=== PATIENT | male | born 1940 | race Caucasian/White ===

== ENCOUNTER 2024-01-01 12:49 | Emergency (ER) | payer MEDICARE, OTHER, SELFPAY ==
[2024-01-01 12:50] VITALS: BP 149/70
[2024-01-01 13:14] LABS: % Basophils 0.4 % (0-2); % Eosinophils 2.4 % (0-6); % Immature Granulocytes 0.4 % (0-0.5); % Lymphocytes 19.7 % (20.5-51.1); % Monocytes 9.6 % (1.7-9.3); % Neutrophils 67.5 % (42.2-75.2); Absolute Eosinophils 0.1 10^3/uL (0-0.7); Absolute Lymphocytes 1.1 10^3/uL (1.2-3.4); Absolute Monocytes 0.5 10^3/uL (0.1-0.6); Absolute Neutrophils 3.6 10^3/uL (1.4-6.5); Hematocrit 39.2 % (39.0-52.0); Hemoglobin 14.1 g/dL (13.0-18.0); Mean Corpuscular Hgb 31.9 pg (27.0-31.0); Mean Corpuscular Volume 88.7 fL (80.0-94.0); Nucleated Red Blood Cells % 0 % (-); Platelet Count 203 10^3/uL (130-400); Red Blood Cell Count 4.42 10^6/uL (4.70-6.10); Red Cell Dist. Width 12.8 % (11.5-14.5); White Blood Cell Count 5.3 10^3/uL (4.8-10.8)
[2024-01-01 13:37] LABS: ALT (SGPT) 19 U/L (0-50); AST (SGOT) 25 U/L (17-59); Albumin 4.5 g/dl (3.5-5.0); Alkaline Phosphatase 54 U/L (38-126); Blood Urea Nitrogen 21 mg/dl (9-20); Calcium 9.5 mg/dl (8.4-10.2); Carbon Dioxide 25 mmol/L (22-30); Chloride 105 mmol/L (98-107); Glucose 101 mg/dl (70-99); Potassium 4.1 mmol/L (3.5-5.1); Sodium 136 mmol/L (135-145); Total Bilirubin 0.7 mg/dl (0.2-1.3); Total Protein 6.6 g/dl (6.3-8.2); eGFR > 60.00
[2024-01-01 13:39] LABS: Troponin I < 0.012 ng/ml
--- NOTE | 2024-01-01 14:00 | ED.GENMED ---
History of Present Illness
General
Chief Complaint: Chest Pain
Time Seen by Provider: 01/01/24 14:00
Travel History
Have you had any contact with someone who has COVID-19?: No
Do you have any symptoms of coronavirus? Fever > 100 degrees, chills, cough, shortness of breath, sore throat, loss of taste or smell, muscle aches, or headache?: No
History of Present Illness
History of Present Illness:
HPI: Patient presents with chest pain that started last night. It became a little bit more constant around 10 AM today. The pain is localized to a small portion of the inferior left breast region. It does not radiate. He has no exertional
symptoms. He never broke onto a sweat. He has no shortness of breath. He is currently on Plavix without aspirin.
EXAM:
GENERAL: Well appearing in no distress
HEENT: Moist oral mucosa
CARDIOVASCULAR: 4 out of 6 systolic murmur heard in the upper sternal borders, normal heart rate and rhythm, No chest wall tenderness
PULMONARY: No respiratory distress, breath sounds are clear and equal
ABDOMEN: Soft with no peritoneal signs, no tenderness
NEUROLOGIC: Excellent strength all extremities, no coordination deficits
PSYCHIATRIC: Appropriate mental status, normal insight and judgement
EXTREMITIES: Nontender, no edema, moves all extremities equally
SKIN: No rash, no lesions
ED COURSE:
2:30 PM: I initially evaluated
NUMBER AND COMPLEXITY OF PROBLEMS ADDRESSED AT THE ENCOUNTER
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
� Acute Exacerbation and/or Progression of Chronic Illness: This is an acute problem
� Differential Diagnosis includes: Musculoskeletal chest wall pain, ACS much less likely, shingles unlikely, no ongoing symptoms therefore doubt pneumothorax or PE
AMOUNT AND/OR COMPLEXITY OF DATA TO BE REVIEWED AND ANALYZED
� I performed an independent evaluation of and my interpretation is:
EKG: Sinus 61, normal axis, no acute ST abnormality
CT:
X-rays:
Laboratory Studies: CBC, chemistries, troponin negative
Other:
� Review of other/old records: The patient had an elevated troponin that peaked at 0.208 in February 2021; the patient was admitted in February 2021 with a stroke and did have an elevated troponin at that time. He was discharged with
recommendation of DAPT and then indefinite after aspirin and signed out AMA at that time
� Clinical information was obtained by an independent historian: I spoke to the at bedside
� Prescriptions/Medications Considered but not given:
� Further testing considered but not performed: Considered x-ray however the patient has no ongoing symptoms
RISK OF COMPLICATIONS AND/OR MORBIDITY OR MORTALITY OF PATIENT MANAGEMENT
� Social determinants of health affecting care: Lives at home
� Discussion with other providers:
� Escalation of care including admission/observation vs risk of discharge considered: Unremarkable ED work and had a normal EKG and troponin today. He does have a murmur on exam and review of old records show that he did have
aortic stenosis. Encourage close outpatient follow-up as the patient has no ongoing symptoms currently.
Past History
Past History
ED Past Medical History: HTN and NIDDM
ED Past Surgical History: Appendectomy and Other (Hernia repair)
Social History
Tobacco: Non-smoker
Alcohol: None
Drug: None
Personal: Single
Living: with family
Employment: Employed
Family History
Family History: Diabetes; Negative Early CAD or CAD
Phy Exam
Physical Exam
Physical Exam:
See HPI
Scores
Heart Score for Chest Pain Patients
STEMI patient?: Not applicable
Course
Orders/Labs/Results
Orders:
Orders
01/01/24 12:52
Electrocardiogram (*1) Urgent
Reason for Study: Chest Pain
EKG- Treatment ONCE
01/01/24 12:58
Complete Blood Count/With Diff Urgent
Comprehensive Metabolic Panel Urgent
Troponin I Urgent
Abnormal Lab Results
01/01/24
12:58
RBC 4.42 L 10^6/uL
(4.70-6.10)
MCH 31.9 H pg
(27.0-31.0)
Absolute Lymphs (auto) 1.1 L 10^3/uL
(1.2-3.4)
Lymphocytes % 19.7 L %
(20.5-51.1)
Monocytes % 9.6 H %
(1.7-9.3)
BUN 21 H mg/dl
(9-20)
Glucose 101 H mg/dl
(70-99)
01/01/24 12:58
01/01/24 12:58
Vital Signs
Initial and Last Documented VS:
Initial Vital Signs
Temp Pulse Resp BP Pulse Ox
97.5 F 67 14 149/70 99
01/01/24 12:50 01/01/24 12:50 01/01/24 12:50 01/01/24 12:50 01/01/24 12:50
Last Documented Vital Signs
Temp Pulse Resp BP Pulse Ox
97.5 F 67 18 143/71 97
01/01/24 12:50 01/01/24 14:37 01/01/24 14:37 01/01/24 14:37 01/01/24 14:37
*Critical Care Note
Total Time (30-74mins, 75-104mins- exclusive of procedures): Not Applicable
ED Attending Note
-
Portions of this chart may have been created with voice recognition software.� Occasional wrong word or��sound alike� substitutions may have occurred due to the inherent limitations of voice recognition software.
Discharge Plan
Departure
Patient Disposition: Home (Routine Discharge)
Date of Disposition: 01/01/24
Time of Disposition: 14:34
Patient with high blood pressure during this ER visit?: Yes
Discharge Problem:
Chest pain
Instructions: Chest Pain DCA Follow Up
Prescriptions:
No Action
metformin 500 MG tablet
1,000 mg PO BID
coenzyme [id number] 1 CAP capsule
200 mg PO DAILY
cholecalciferol (vitamin D3) 1,000 UNITS tablet
1,000 units PO QPM
cod liver oil 1 CAP capsule
1 cap PO QPM
ascorbic acid (vitamin C) [Vitamin C] 500 MG tablet
500 mg PO DAILY
losartan 25 MG tablet
25 mg PO QPM
cinnamon bark [Cinnamon] 500 MG capsule
2,000 mg PO QPM
glucos sul [id number] [Glucosamine Chondroitin] 1 EACH capsule
1 ea PO BID
Referrals:
Cullen Iqbal MD [Active] - Follow up in 2-3 days
Merlin Hughes MD [Family Provider] -
Activity Restrictions/Additional Instructions:
The cause of your chest pain is unclear. It could be coming from the chest wall. Fortunately you do not have any further chest pain. Cardiac blood work shows no sign of heart attack. EKG is unremarkable. Dr. Iqbal's group read an echo that
you had back in 2020 and at that time a moderate amount of aortic stenosis was noted. Please follow-up with cardiology and somebody from Dr. Iqbal's office should be calling you for follow-up.
Interventions
Interventions:
*Risk Screen - Suicide Last Done: 01/01/24 14:35
*General Assessment Last Done: 01/01/24 12:50
*Neglect/Abuse Screening Last Done: 01/01/24 14:35
ED- Fall Risk Assessment Last Done: 01/01/24 14:35
*ED COVID-19 Vaccine History Last Done: 01/01/24 14:35
ED- Cardiac Assessment Last Done: 01/01/24 14:35
[2024-01-01 14:34] VITALS: BMI 21.7
[2024-01-01 14:37] VITALS: BP 143/71
== END 2024-01-01 14:55 | disposition home or self-care (01) ==
LOC: EMR 12:49
PROVIDERS: Physician Assistant; EMERGENCY PHYSICIAN Emergency Medicine; FAMILY PHYSICIAN Internal Medicine
DX: R07.89 Other chest pain (principal); I10 Essential (primary) hypertension; E11.9 Type 2 diabetes mellitus without complications; I35.0 Nonrheumatic aortic (valve) stenosis; Z79.02 Long term (current) use of antithrombotics/antiplatelets; Z83.3 Family history of diabetes mellitus; Z86.73 Personal history of transient ischemic attack (TIA), and cerebral infarction without residual deficits; Z90.49 Acquired absence of other specified parts of digestive tract
CPT/HCPCS: 99283; 80053; 84484; 85025; 93005

== ENCOUNTER → 2024-02-26 17:15 | Outpatient (REF) | payer MEDICARE, OTHER, SELFPAY | LOC: RCS 17:15 | PROVIDERS: ATTENDING PHYSICIAN Internal Medicine Cardiovascular Disease; FAMILY PHYSICIAN Internal Medicine | DX: I35.0 Nonrheumatic aortic (valve) stenosis (principal) | CPT/HCPCS: 93306 ==

== ENCOUNTER → 2024-04-16 06:36 | Outpatient (REF) | payer MEDICARE, OTHER, SELFPAY ==
[2024-04-16 07:56] LABS: ALT (SGPT) 15 U/L (0-50); AST (SGOT) 22 U/L (17-59); Albumin 4.3 g/dl (3.5-5.0); Alkaline Phosphatase 70 U/L (38-126); Blood Urea Nitrogen 15 mg/dl (9-20); Calcium 9.6 mg/dl (8.4-10.2); Carbon Dioxide 25 mmol/L (22-30); Chloride 104 mmol/L (98-107); Glucose 122 mg/dl (70-99); Potassium 4.4 mmol/L (3.5-5.1); Sodium 139 mmol/L (135-145); Total Bilirubin 0.5 mg/dl (0.2-1.3); Total Protein 6.6 g/dl (6.3-8.2); eGFR > 60.00
[2024-04-16 09:36] LABS: Glycohemoglobin (HgbA1c) 6.8 % (4.0-5.6)
== END ==
LOC: REG 06:36
PROVIDERS: ATTENDING PHYSICIAN Internal Medicine Endocrinology, Diabetes & Metabolism
DX: E11.21 Type 2 diabetes mellitus with diabetic nephropathy (principal)
CPT/HCPCS: 36415; 80053; 83036

== ENCOUNTER 2024-08-02 09:22 | Emergency (ER) | payer MEDICARE, OTHER, SELFPAY ==
[2024-08-02 09:26] VITALS: BP 149/90
--- NOTE | 2024-08-02 09:53 | EDRN ---
Dr. Mclean in room w/pt.
[2024-08-02 10:06] VITALS: BMI 21.8
--- NOTE | 2024-08-02 10:15 | ED.GENMED ---
History of Present Illness
General
Chief Complaint: Extremity Pain (non-traumatic)
Time Seen by Provider: 08/02/24 09:44
History of Present Illness
History of Present Illness:
83-year-old male without significant past medical history presenting with left upper extremity pain. Patient notes pain for the past 3 days, however worsened last evening. Denies any known inciting injury, however does report that he chops a lot
of wood and may have irritated his arm from that movement. Denies associated chest pain or difficulty breathing. He took 2 Aleve and Tylenol prior to arrival and reports that pain has improved. Denies numbness or tingling to his extremity.
Denies fever or systemic symptoms. Denies additional acute medical complaints
Past History
Past History
ED Past Medical History: HTN and NIDDM
ED Past Surgical History: Appendectomy and Other (Hernia repair)
Social History
Tobacco: Non-smoker
Alcohol: None
Drug: None
Personal: Single
Living: with family
Employment: Employed
Family History
Family History: Diabetes; Negative Early CAD or CAD
Phy Exam
Physical Exam
Physical Exam:
General: Well-appearing, no clinical signs of dehydration, nontoxic and in no acute distress
HEENT: protecting airway
Neck: appears supple
CV: Normal heart rate, regular rhythm, no evidence of cyanosis
Resp: No accessory muscle use, no increased work of breathing, lungs clear to auscultation bilaterally
Abd: No distention
Extremities: No deformities, no swelling, no erythema, no focal reproducible tenderness. Distal sensation and pulses intact to the left upper extremity. Range of motion intact to the left upper extremity
Neuro: alert, no focal neurologic deficit
: deferred
Rectal: deferred
Psych: Normal affect
Skin: Intact
Course
Orders/Labs/Results
Orders:
Orders
08/02/24 09:30
Electrocardiogram (*1) Urgent
Reason for Study: Hypertension, Benign
08/02/24 09:31
EKG- Treatment ONCE
08/02/24 10:16
Complete Blood Count/With Diff Urgent
Comprehensive Metabolic Panel Urgent
Troponin I Urgent
Abnormal Lab Results
08/02/24
10:16
WBC 4.4 L 10^3/uL
(4.8-10.8)
RBC 4.02 L 10^6/uL
(4.70-6.10)
Hgb 11.9 L g/dL
(13.0-18.0)
Hct 35.2 L %
(39.0-52.0)
Absolute Lymphs (auto) 0.8 L 10^3/uL
(1.2-3.4)
Lymphocytes % 18.9 L %
(20.5-51.1)
Monocytes % 10.0 H %
(1.7-9.3)
BUN 23 H mg/dl
(9-20)
Glucose 197 H mg/dl
(70-99)
Total Protein 6.1 L g/dl
(6.3-8.2)
08/02/24 10:16
08/02/24 10:16
Vital Signs
Initial and Last Documented VS:
Initial Vital Signs
Temp Pulse Resp BP Pulse Ox
98.1 F 72 16 149/90 98
08/02/24 09:26 08/02/24 09:26 08/02/24 09:26 08/02/24 09:26 08/02/24 09:26
Last Documented Vital Signs
Temp Pulse Resp BP Pulse Ox
98.1 F 64 14 152/67 99
08/02/24 09:26 08/02/24 11:30 08/02/24 11:30 08/02/24 11:00 08/02/24 11:30
MDM/Problems Addressed
MDM/Problems Addressed:
83-year-old male with history of diabetes presenting with left upper extremity pain for 3 days. Vital signs are within normal limits.
On exam, patient is well-appearing, no acute distress or discomfort. Overall benign examination of the left upper extremity, no swelling, no deformity, no redness. Range of motion is intact without any neurovascular compromise. No infectious
findings. Notes that he took Aleve and Tylenol prior to arrival which has significantly improved his pain. Ultimately suspect musculoskeletal quality to pain. Reports that he chops a lot of wood, which is likely strained the muscles in his
forearm. Screening EKG performed, nonischemic with lower suspicion for ACS equivalent. Will screen with laboratory analysis given age and comorbidities, however again low suspicion. Will obtain x-rays no occult fracture.
10:20 - Patient is declining x-ray imaging at this time, feel reasonable
11:35 - Labs unremarkable. On reassessment patient remains hemodynamically stable. At this time feel that he is stable for discharge. Advised continued supportive therapy. Return precautions discussed and patient verbalized understanding
*EKG
Interpreted by ED Provider?: Yes
EKG Intrepretation Date: 08/02/24
EKG Intrepretation Time: 10:19
Interpretation: normal
Comparison EKG: no changes (01/01/24)
Heart Rate: 65
Rate: normal
Rhythm: sinus
Lynn: normal axis
Interval: normal interval
QRS Pattern: normal QRS
Ischemia: no ischemia
*Critical Care Note
Total Time (30-74mins, 75-104mins- exclusive of procedures): Not Applicable
ED Attending Note
-
Portions of this chart may have been created with voice recognition software.� Occasional wrong word or��sound alike� substitutions may have occurred due to the inherent limitations of voice recognition software.
Discharge Plan
Departure
Prescriptions:
No Action
metformin 500 MG tablet
1,000 mg PO BID
coenzyme [id number] E 1 CAP capsule
200 mg PO DAILY
cholecalciferol (vitamin D3) 1,000 UNITS tablet
1,000 units PO QPM
cod liver oil 1 CAP capsule
1 cap PO QPM
ascorbic acid (vitamin C) [Vitamin C] 500 MG tablet
500 mg PO DAILY
losartan 25 MG tablet
25 mg PO QPM
cinnamon bark [Cinnamon] 500 MG capsule
2,000 mg PO QPM
glucos sul [id number] [Glucosamine Chondroitin] 1 EACH capsule
1 ea PO BID
Referrals:
Daniella Suresh MD [Family Provider] -
Interventions
Interventions:
*Risk Screen - Suicide Last Done: 08/02/24 10:07
*General Assessment Last Done: 08/02/24 10:11
*Neglect/Abuse Screening Last Done: 08/02/24 10:07
ED- Fall Risk Assessment Last Done: 08/02/24 10:11
*ED COVID-19 Vaccine History Last Done: 08/02/24 10:07
ED-Skin Assessment Last Done: 08/02/24 10:23
ED-Peripheral Vascular Assessment Last Done: 08/02/24 10:23
ED-Musculoskeletal Assessment Last Done: 08/02/24 10:23
Discharge Date and Time
Print Language: TURKMEN
[2024-08-02 10:19] VITALS: BP 148/75
--- NOTE | 2024-08-02 10:21 | EDRN ---
Pt when laureen came to room to take him to xray for lower arm and elbow where his pain is declined having an xray done. Pt said to this RN he has no injury so an xray will not show anything. He also said 'I would know if it was broken.'
[2024-08-02 10:36] LABS: % Basophils 0.5 % (0-2); % Eosinophils 2.7 % (0-6); % Immature Granulocytes 0.5 % (0-0.5); % Lymphocytes 18.9 % (20.5-51.1); % Neutrophils 67.4 % (42.2-75.2); Absolute Eosinophils 0.1 10^3/uL (0-0.7); Absolute Lymphocytes 0.8 10^3/uL (1.2-3.4); Absolute Monocytes 0.4 10^3/uL (0.1-0.6); Hematocrit 35.2 % (39.0-52.0); Hemoglobin 11.9 g/dL (13.0-18.0); Mean Corp Hgb Conc. 33.8 g/dL (33.0-37.0); Mean Corpuscular Hgb 29.6 pg (27.0-31.0); Mean Corpuscular Volume 87.6 fL (80.0-94.0); Mean Platelet Volume 9.3 fL (7.4-10.4); Nucleated Red Blood Cells % 0 % (-); Platelet Count 175 10^3/uL (130-400); Red Blood Cell Count 4.02 10^6/uL (4.70-6.10); Red Cell Dist. Width 14.1 % (11.5-14.5); White Blood Cell Count 4.4 10^3/uL (4.8-10.8)
[2024-08-02 11:00] VITALS: BP 152/67
[2024-08-02 11:11] LABS: ALT (SGPT) 19 U/L (0-50); AST (SGOT) 22 U/L (17-59); Albumin 4.2 g/dl (3.5-5.0); Alkaline Phosphatase 58 U/L (38-126); Blood Urea Nitrogen 23 mg/dl (9-20); Calcium 9.7 mg/dl (8.4-10.2); Carbon Dioxide 22 mmol/L (22-30); Chloride 104 mmol/L (98-107); Estimated Creatinine Clearance 83 ml/min; Glucose 197 mg/dl (70-99); Potassium 4.6 mmol/L (3.5-5.1); Sodium 140 mmol/L (135-145); Total Bilirubin 0.4 mg/dl (0.2-1.3); Total Protein 6.1 g/dl (6.3-8.2); eGFR > 60.00
[2024-08-02 11:13] LABS: Troponin I < 0.012 ng/ml
--- NOTE | 2024-08-02 11:33 | EDRN ---
Dr. Mclean in to see pt at this time.
[2024-08-02 11:34] VITALS: BP 149/71
== END 2024-08-02 11:50 | disposition home or self-care (01) ==
LOC: EMR 09:22
PROVIDERS: EMERGENCY PHYSICIAN Student in an Organized Health Care Education/Training Program; FAMILY PHYSICIAN Internal Medicine Endocrinology, Diabetes & Metabolism
DX: M79.602 Pain in left arm (principal); E11.9 Type 2 diabetes mellitus without complications; I10 Essential (primary) hypertension; Z88.1 Allergy status to other antibiotic agents
CPT/HCPCS: 99283; 80053; 84484; 85025; 93005

== ENCOUNTER → 2024-08-13 07:32 | Outpatient (REF) | payer MEDICARE, OTHER, SELFPAY ==
[2024-08-13 09:02] LABS: Glycohemoglobin (HgbA1c) 7.9 % (4.0-5.6)
[2024-08-13 09:12] LABS: Microalbumin, Random Urine 4.3 mg/dl (0.6-1.7); Microalbumin/creatinine Ratio 49.9 mg/g
[2024-08-13 09:33] LABS: ALT (SGPT) 23 U/L (0-50); AST (SGOT) 26 U/L (17-59); Albumin 4.6 g/dl (3.5-5.0); Alkaline Phosphatase 55 U/L (38-126); Blood Urea Nitrogen 16 mg/dl (9-20); Calcium 9.4 mg/dl (8.4-10.2); Carbon Dioxide 25 mmol/L (22-30); Chloride 100 mmol/L (98-107); Glucose 153 mg/dl (70-99); HDL Cholesterol 59 mg/dl; LDL Cholesterol, Calculated 40 mg/dl; Potassium 4.4 mmol/L (3.5-5.1); Sodium 140 mmol/L (135-145); Total Bilirubin 0.9 mg/dl (0.2-1.3); Total Cholesterol 111 mg/dl (50-199); Total Protein 6.6 g/dl (6.3-8.2); Triglyceride 64 mg/dl (10-149); Very Low Density Lipoprotein 12 mg/dl (0-30); eGFR > 60.00
== END ==
LOC: REG 07:32
PROVIDERS: ATTENDING PHYSICIAN Internal Medicine Endocrinology, Diabetes & Metabolism; FAMILY PHYSICIAN Internal Medicine
DX: E11.21 Type 2 diabetes mellitus with diabetic nephropathy (principal)
CPT/HCPCS: 36415; 80053; 80061; 82043; 82570; 83036

== ENCOUNTER → 2024-11-24 07:17 | Outpatient (REF) | payer MEDICARE, OTHER, SELFPAY ==
[2024-11-24 08:24] LABS: ALT (SGPT) 20 U/L (0-50); AST (SGOT) 25 U/L (17-59); Albumin 4.3 g/dl (3.5-5.0); Alkaline Phosphatase 51 U/L (38-126); Blood Urea Nitrogen 18 mg/dl (9-20); Calcium 9.3 mg/dl (8.4-10.2); Carbon Dioxide 26 mmol/L (22-30); Chloride 102 mmol/L (98-107); Glucose 119 mg/dl (70-99); HDL Cholesterol 32 mg/dl; LDL Cholesterol, Calculated 38 mg/dl; Potassium 4.7 mmol/L (3.5-5.1); Sodium 138 mmol/L (135-145); Total Bilirubin 0.5 mg/dl (0.2-1.3); Total Cholesterol 85 mg/dl (50-199); Total Protein 6.5 g/dl (6.3-8.2); Triglyceride 75 mg/dl (10-149); Very Low Density Lipoprotein 15 mg/dl (0-30); eGFR > 60.00
[2024-11-24 09:05] LABS: Microalbumin, Random Urine 4.2 mg/dl (0.6-1.7); Microalbumin/creatinine Ratio 43.4 mg/g
[2024-11-24 10:19] LABS: Glycohemoglobin (HgbA1c) 7.2 % (4.0-5.6)
== END ==
LOC: REG 07:17
PROVIDERS: ATTENDING PHYSICIAN Internal Medicine Endocrinology, Diabetes & Metabolism; FAMILY PHYSICIAN Internal Medicine
DX: E11.21 Type 2 diabetes mellitus with diabetic nephropathy (principal)
CPT/HCPCS: 36415; 80053; 80061; 82043; 82570; 83036

== ENCOUNTER → 2025-04-02 07:40 | Outpatient (REF) | payer MEDICARE, OTHER, SELFPAY ==
[2025-04-02 08:36] LABS: ALT (SGPT) 22 U/L (0-50); AST (SGOT) 24 U/L (17-59); Albumin 4.2 g/dl (3.5-5.0); Alkaline Phosphatase 41 U/L (38-126); Blood Urea Nitrogen 23 mg/dl (9-20); Calcium 9.5 mg/dl (8.4-10.2); Carbon Dioxide 27 mmol/L (22-30); Chloride 107 mmol/L (98-107); Glucose 129 mg/dl (70-99); Potassium 4.2 mmol/L (3.5-5.1); Sodium 142 mmol/L (135-145); Total Bilirubin 0.6 mg/dl (0.2-1.3); Total Protein 6.4 g/dl (6.3-8.2); eGFR > 60.00
[2025-04-02 11:14] LABS: Glycohemoglobin (HgbA1c) 7.3 % (4.0-5.6)
== END ==
LOC: REG 07:40
PROVIDERS: ATTENDING PHYSICIAN Internal Medicine Endocrinology, Diabetes & Metabolism; FAMILY PHYSICIAN Internal Medicine
DX: E11.21 Type 2 diabetes mellitus with diabetic nephropathy (principal)
CPT/HCPCS: 36415; 80053; 83036

== ENCOUNTER → 2025-07-30 07:06 | Outpatient (REF) | payer MEDICARE, OTHER, SELFPAY ==
[2025-07-30 09:27] LABS: Glycohemoglobin (HgbA1c) 7.1 % (4.0-5.6)
[2025-07-30 09:39] LABS: Microalb - Urine Creatinine 95.000 mg/dl
[2025-07-30 09:44] LABS: Microalbumin, Random Urine 6.3 mg/dl (0.6-1.7)
[2025-07-30 09:48] LABS: ALT (SGPT) 24 U/L (0-50); AST (SGOT) 25 U/L (17-59); Albumin 4.9 g/dl (3.5-5.0); Alkaline Phosphatase 46 U/L (38-126); Blood Urea Nitrogen 20 mg/dl (9-20); Calcium 10.0 mg/dl (8.4-10.2); Carbon Dioxide 28 mmol/L (22-30); Chloride 105 mmol/L (98-107); Glucose 133 mg/dl (70-99); HDL Cholesterol 55 mg/dl; LDL Cholesterol, Calculated 43 mg/dl; Potassium 4.4 mmol/L (3.5-5.1); Sodium 140 mmol/L (135-145); Total Protein 7.2 g/dl (6.3-8.2); Very Low Density Lipoprotein 15 mg/dl (0-30); eGFR > 60.00
== END ==
LOC: RCS 07:06
PROVIDERS: ATTENDING PHYSICIAN Internal Medicine Cardiovascular Disease; FAMILY PHYSICIAN Nurse Practitioner Adult Health; REFERRING PHYSICIAN Internal Medicine Endocrinology, Diabetes & Metabolism
DX: I35.0 Nonrheumatic aortic (valve) stenosis (principal); E11.21 Type 2 diabetes mellitus with diabetic nephropathy
CPT/HCPCS: 36415; 80053; 80061; 82043; 82570; 83036; 93306

== ENCOUNTER → 2025-10-05 06:58 | Outpatient (REF) | payer MEDICARE, OTHER, SELFPAY ==
[2025-10-05 08:41] LABS: ALT (SGPT) 17 U/L (0-50); AST (SGOT) 21 U/L (17-59); Albumin 4.4 g/dl (3.5-5.0); Alkaline Phosphatase 47 U/L (38-126); Blood Urea Nitrogen 14 mg/dl (9-20); Calcium 9.4 mg/dl (8.4-10.2); Carbon Dioxide 27 mmol/L (22-30); Chloride 103 mmol/L (98-107); Glucose 136 mg/dl (70-99); Potassium 4.4 mmol/L (3.5-5.1); Sodium 136 mmol/L (135-145); Total Protein 6.8 g/dl (6.3-8.2); eGFR > 60.00
[2025-10-05 09:18] LABS: Glycohemoglobin (HgbA1c) 7.4 % (4.0-5.9)
== END ==
LOC: REG 06:58
PROVIDERS: ATTENDING PHYSICIAN Internal Medicine Endocrinology, Diabetes & Metabolism; FAMILY PHYSICIAN Internal Medicine
DX: E11.21 Type 2 diabetes mellitus with diabetic nephropathy (principal)
CPT/HCPCS: 36415; 80053; 83036